=== PATIENT | male | born 1965 | race Two or more races ===

== ENCOUNTER 2023-10-18 00:21 | Emergency (ER) | payer OTHER ==
[~2023-10-18] VITALS: Ht 165.1 cm; Wt 95.3 kg
[2023-10-18] MEDS ORDERED: SYNTHROID75 MCG (00:45)
[2023-10-18 03:54] LABS: HEMATOCRIT 35.9 % (39.0-48.0); HEMOGLOBIN 11.4 g/dL (13-16.00); MEAN CELL VOLUME 76.4 fL (80.0-100.00); MEAN CORPUSCULAR HEMOGLOBIN 24.4 pg (27.00-32.0); MEAN CORPUSCULAR HGB CONC 31.9 g/dl (32.0-36.0); PLATELET COUNT 154 K/uL (150-450); RED CELL DISTRIBUTION WIDTH 19.3 % (11.5-14.5)
[2023-10-18 04:04] LABS: ALBUMIN 3.7 gm/dL (3.4-5.0); BILIRUBIN TOTAL 0.4 mg/dL (0.3-1.2); CALCIUM 8.8 mg/dL (8.5-10.1); CREATININE SERUM 0.86 mg/dL (0.70-1.30); GFR 91.34; GLOBULINA 3.6 G/DL (2.4-3.5); POTASSIUM 3.42 mEq/L (3.5-5.1); TOTAL PROTEIN 7.3 gm/dL (6.4-8.2)
[2023-10-18 04:15] LABS: INR 1.07; PROTHROMBIN TIME 11.2 SECONDS (9.0-11.5)
== END 2023-10-18 11:24 | disposition home or self-care (01) ==
LOC: ER 00:22
DX: K31.89 Other diseases of stomach and duodenum (principal); K43.9 Ventral hernia without obstruction or gangrene